=== PATIENT | male | born 1975 | race Two or more races ===

== ENCOUNTER 2018-07-16 23:08 | Emergency (ER) | payer SELFPAY ==
[~2018-07-16] VITALS: Ht 160 cm; Wt 72.6 kg
[2018-07-17] MEDS ORDERED: cloNIDine HCL 0.1 MG TAB PO ONE (02:15)
[2018-07-17] MEDS: ACETAMINOPHEN 500 MG TAB PO ONE ×2 (04:14→04:25)
[2018-07-17 05:20] VITALS: BP 136/88
== END 2018-07-17 06:39 ==
LOC: ER 23:11
DX: S02.92XA Unspecified fracture of facial bones, initial encounter for closed fracture (principal); K02.9 Dental caries, unspecified; Y08.89XA Assault by other specified means, initial encounter; Y93.89 Activity, other specified; Y99.8 Other external cause status; Y92.89 Other specified places as the place of occurrence of the external cause
CPT/HCPCS: 70450; 70486; 94761